=== PATIENT | male | born 2000 ===

== ENCOUNTER 2023-12-21 09:45 | Outpatient (RCR) | payer OTHER, SELFPAY ==
--- NOTE | 2023-10-31 12:05 | PTOPEVAL1 ---
Assessment and note entered by Merlin Osborne Evaluation Information Assessment Status Evaluation Diagnosis pain in the thoracic spine Onset 08/13/23 Subjective Information Pt. reports that he has had neck and shoulder blade pain for about 4 years. Pt. reports that he has been to the chiropractor 10 times, however little to no help. Pt. reports that his neck and back pain are increased with lifting, driving and looking at his phone. He notices increased pain with sleeping. he describes his pain as both a burning and tightness along the neck and shoulder blades. Pt. notes a small amount of pain in his arms. He reports that his pain is constant and will wake him frequently through the night. He states that at work he does frequent lifting and can vary from light to heavy. He states that his goal is to decrease his neck and back pain. Reported Pain Level Pain Score 7: Self Report Assessment PT Clinical Summary Pt. is a 23 year old male who enters the clinic with cervical and thoracic pain. He presents with core weakness, impaired postural awareness, and pain. Continued skilled PT is indicated in order to focus on abdominal strength, periscapular strength and tissue mobility in order to reduce pain with IADL performance. Plan of Care Interventions Electrical Stimulation,Hot Pack/Cold Pack,Manual Therapy,Mechanical Traction,Neuro Re-education, Patient/Caregiver Educati,Therapeutic Activities, Therapeutic Exercise PT Services Indicated Yes Treatment Frequency and 2x/week x 10 visits Duration These treatments will address the objective and functional deficits as defined above. The patient will be advanced safely and appropriately in order for the patient to progress towards his/her prior level of function. Additional exercises will be introduced and as well as a comprehensive home exercise program upon discharge, if needed, ?to ensure carryover of functional gains achieved in the clinic. This treatment plan has been reviewed and agreement upon by the patient.
--- NOTE | 2023-10-31 12:09 | OPREHPOC ---
Outpatient Therapy Plan of Care This is a Multidisciplinary Plan of Care that may contain components documented by all disciplines (PT, OT, and ST.) PT Problem 1 PT Problem #1 Knowledge Deficit PT Goal 1 Goal Pt. will be independent with a HEP addressing periscapular strength and postural awareness Target Visit 2 PT Problem 2 PT Problem #2 Pain PT Goal 1 Goal Pt. will provide pain reports of 2/10 at worst at the mid back and neck. Target Visit 10 PT Problem 3 PT Problem #3 Impaired Strength PT Goal 1 Goal Pt. will present with 4/5 lower and oblique abdominal strength to improve postural awareness and reduce pain. Target Visit 10 PT Goal 2 Goal pt. will present with 4+/5 bilateral lower trapezius and middle trapezius strength in order to improve thoracic stability and reduce pain. Target Visit 10
--- NOTE | 2023-11-05 16:14 | PCPTNOTE ---
Patient was a No Show for today's treatment.
--- NOTE | 2023-11-28 13:47 | PCPTNOTE ---
Pt cancelled appt today due to a busy schedule today.
--- NOTE | 2023-12-04 13:51 | PCPTNOTE ---
Pts appt was canceled due to providers absence.
--- NOTE | 2023-12-28 11:08 | PCPTNOTE ---
Patient no show for today's appointment.
--- NOTE | 2024-04-24 15:21 | PTOPDC ---
Assessment and note entered by Merlin Osborne Discharge Information Assessment Status Discharge - Pt Not Present Diagnosis pain in the thoracic spine Onset 08/13/23 Assessment PT Clinical Summary Mr. Hidalgo attended a total of 9 treatment sessions from 10/31/23 to 12/21/23. Treatment consisted of therapeutic exercise/neuromuscular re -education addressing mobility, strength and postural awareness, as well as manual techniques to reduce pain. Pt. provided reports of relief with treatment. He failed to show for his last scheduled appointment and has not contacted the clinic. He will be discharged from our care at this time. Refer to the last daily note for discharge status. Plan of Care PT Services Indicated No
== END 2024-01-29 23:59 | disposition home or self-care (01) ==
LOC: ANHPT 09:45
PROVIDERS: PCP Physician Assistant; Visit Provider Physician Assistant
DX: M54.6 Pain in thoracic spine (principal)
CPT/HCPCS: 97014; 97110; 97112; 97140; 97161; 97530; 99199; G0283